=== PATIENT | male | born 1985 | race Caucasian/White ===

== ENCOUNTER 2018-09-24 08:30 | Emergency (ER) | payer SELFPAY ==
[~2018-09-24] VITALS: Ht 188 cm; Wt 106.0 kg
[~2018-09-24 08:30] MED LIST: FLUO20CA19 PO
[2018-09-24 08:40] VITALS: BP 147/79
[2018-09-24] MEDS ORDERED: DIPHENHYDRAMINE 25 MG CAPSULE PO ONE (09:00)
[2018-09-24] MEDS ORDERED: CEFTRIAXONE 1,000 MG IM ONE (09:00)
[2018-09-24] MEDS ORDERED: FAMOTIDINE 20 MG TABLET PO ONE (09:00)
[2018-09-24] MEDS ORDERED: CEFTRIAXONE 1,000 MG ONE (09:05)
[2018-09-24] MEDS ORDERED: FAMOTIDINE 20 MG TABLET ONE (09:05)
[2018-09-24] MEDS ORDERED: DIPHENHYDRAMINE 25 MG CAPSULE ONE (09:05)
== END 2018-09-24 09:48 | disposition home or self-care (01) ==
LOC: ED 09:40
DX: K13.0 Diseases of lips (principal); F17.210 Nicotine dependence, cigarettes, uncomplicated
CPT/HCPCS: 96372; 99283; J0696; Q0163

== ENCOUNTER 2018-10-31 07:58 | Emergency (ER) | payer MEDICAID, OTHER ==
[~2018-10-31] VITALS: Ht 190.5 cm; Wt 110.0 kg
[2018-10-31 08:23] VITALS: BP 128/61
[2018-10-31] MEDS ORDERED: TRAZ-137 PO (08:35)
== END 2018-10-31 09:18 | disposition home or self-care (01) ==
LOC: ED 09:07
DX: H57.89 Other specified disorders of eye and adnexa (principal)
CPT/HCPCS: 99282

== ENCOUNTER 2018-11-17 06:30 | Emergency (ER) | payer MEDICAID ==
[~2018-11-17] VITALS: Ht 188 cm; Wt 110.4 kg
[~2018-11-17 06:30] MED LIST changes: +TRAZ-137 PO
[2018-11-17 06:32] VITALS: BP 136/76
== END 2018-11-17 07:29 | disposition home or self-care (01) ==
LOC: ED 06:52
DX: H10.022 Other mucopurulent conjunctivitis, left eye (principal); Z87.891 Personal history of nicotine dependence
CPT/HCPCS: 99283